=== PATIENT | male | born 1935 | race Caucasian/White ===

== ENCOUNTER 2021-07-28 10:33 | Observation (INO) ==
[2021-07-28 12:32] LABS: ABS Basophils 0.1 10^3/ul (0-0.2); ABS Eosinophils 0.1 10^3/ul (0-0.6); ABS Lymphocytes 1.2 10^3/ul (1.0-4.8); ABS Monocytes 0.5 10^3/ul (0-0.8); ABS Neutrophils 6.5 10^3/ul (1.5-7.7); Eosinophil % 0.9 %; Hematocrit 39 % (42-52); Lymphocyte % 13.9 %; Mean Corpuscular HGB Conc 33 g/dL (31-36); Mean Corpuscular Hemoglobin 30 pg (27-31); Mean Corpuscular Volume 91 fL (80-94); Mean Platelet Volume 8.7 fL (7.4-10.4); Platelet Count 149 10^3/uL (150-450); Red Cell Distribution Width 14 % (10-15); White Blood Count 8.3 10^3/uL (3.5-10.8)
[2021-07-28 12:53] LABS: INR 1.37 (0.86-1.15)
[2021-07-28 12:58] LABS: Albumin 3.9 g/dL (3.2-5.2); Albumin/Globulin Ratio 1.7 (1-3); Calcium 8.9 mg/dL (8.6-10.3); EGFR African American 71.9 (>60); EGFR Non-African American 59.4 (>60); Globulin 2.3 g/dL (2-4); Potassium 4.3 mmol/L (3.5-5.0); Total Bilirubin 0.5 mg/dL (0.2-1.0); Total Protein 6.2 g/dL (6.4-8.9)
[2021-07-28 12:59] LABS: Troponin I 0.02 ng/mL (<0.03)
[2021-07-28 14:55] LABS: Rapid COVID-19 Molecular Undetected (Undetected)
[2021-07-28] MEDS: Furosemide 40 mg/4 ml IV VIAL IV SCH (17:42)
[2021-07-29 06:12] LABS: ABS Basophils 0.1 10^3/ul (0-0.2); ABS Eosinophils 0.1 10^3/ul (0-0.6); ABS Lymphocytes 1.3 10^3/ul (1.0-4.8); ABS Monocytes 0.4 10^3/ul (0-0.8); ABS Neutrophils 5.5 10^3/ul (1.5-7.7); Eosinophil % 1.5 %; Hematocrit 39 % (42-52); Hemoglobin 12.9 g/dL (14.0-18.0); Lymphocyte % 17.2 %; Mean Corpuscular HGB Conc 34 g/dL (31-36); Mean Corpuscular Hemoglobin 30 pg (27-31); Mean Corpuscular Volume 90 fL (80-94); Mean Platelet Volume 8.1 fL (7.4-10.4); Platelet Count 135 10^3/uL (150-450); Red Blood Count 4.28 10^6 /uL (4.18-5.48); Red Cell Distribution Width 14 % (10-15); White Blood Count 7.4 10^3/uL (3.5-10.8)
[2021-07-29 06:33] LABS: EGFR African American 69.8 (>60); EGFR Non-African American 57.7 (>60); Potassium 3.9 mmol/L (3.5-5.0)
[2021-07-29] MEDS ORDERED: Cholecalciferol (VIT D3) 1,000 unit TAB PO SCH (09:00)
[2021-07-29] MEDS ORDERED: NF: Mirabegron 50 mg ER TAB (NF) PO SCH (09:00)
[2021-07-29] MEDS: Furosemide 40 mg/4 ml IV VIAL IV SCH (10:05)
[2021-07-29 13:16] VITALS: BP 142/75
== END 2021-07-29 14:15 | disposition home or self-care (01) ==
LOC: MEDTELE 10:33 → ED 10:33 → MEDTELE 19:33
PROVIDERS: ADMIT Internal Medicine; ATTEND Internal Medicine